=== PATIENT | female | born 1975 | race Caucasian/White ===

== ENCOUNTER 2016-09-24 14:02 | Emergency (ER) | payer OTHER | END 2016-09-24 14:47 | disposition home or self-care (01) | LOC: FER 14:02 | DX: J02.9 Acute pharyngitis, unspecified (principal); K50.90 Crohn's disease, unspecified, without complications; Z88.0 Allergy status to penicillin; Z79.899 Other long term (current) drug therapy | CPT/HCPCS: 87450; 87804; 87899; 99283 ==

== ENCOUNTER 2020-07-22 13:01 | Inpatient (IN) | payer OTHER ==
[~2020-07-22 13:01] MED LIST: COLACE100 MG PO; KEFLEX250 MG PO; PRENATAL FORMU1 EACH PO; ZYRTEC10 M3 PO
[2020-07-22 14:29] LABS: BASOPHIL 0.9 % (0-2); EOSINOPHIL 1.2 % (0-5); HCT 49.1 % (37.0-47.0); LYMPHOCYTE 19.4 % (15-48); MCH 31.1 pg (25.0-31.0); MCHC 34.6 g/dL (32.0-36.0); MCV 89.9 fL (78.0-100.0); MONOCYTE 6.5 % (0-12); NEUTROPHIL 71.6 % (41-80); NRBC 0; PLT 264 K/uL (150-400); RBC 5.46 M/uL (4.20-5.40); RDW 13.3 % (11.5-14.0)
[2020-07-22 14:48] LABS: INR 1.14 (0.9-1.2); PROTHROMBIN TIME 13.9 SECONDS (11.4-13.6)
[2020-07-22 14:49] LABS: D-DIMER 0.41 ug/mLFEU (0.00-0.41)
[2020-07-22 15:06] LABS: ALBUMIN 4.2 g/dL (3.4-5.0); ALKALINE PHOSHATASE 82 U/L (46-116); ALT 24 U/L (14-59); AST 14 U/L (15-37); BILIRUBIN - TOTAL 0.5 mg/dL (0.2-1.0); BUN 11 mg/dL (7-18); BUN/CREAT RATIO (CALC) 13.8 RATIO; CHLORIDE 106 mmol/L (98-107); CO2 (BICARBONATE) 20 mmol/L (21-32); CPK 107 U/L (26-192); GLOBULIN (CALCULATION) 4.2 g/dL; GLUCOSE 123 mg/dL (74-106); LDH 153 U/L (81-234); LIPASE 170 U/L (73-393); POTASSIUM 3.5 mmol/L (3.5-5.1); PRO-BNP 1068 pg/mL (<125); TOTAL PROTEIN 8.4 g/dL (6.4-8.2)
--- NOTE | 2020-07-23 03:07 | NUR ---
PT ADMITTED WITH AFLUTTER, PT ARRIVED TO FLOOR WITH CARDIZEM 125MG/125ML D5 INFUSING AT 15ML/HR ARRIVED TO FLOOR AT 1945 ON 07/22/20, RATE CHANGED AT 2019 PER OUTREACH ANALYST TO 10ML/HER WITH PTS HEART RATE AROUND 60-65, BLOOD PRESSURE DROPPED AT 0300 TO 84/42 WITH HEART RATE AT 58-60 OUTREACH ANALYST NOTIFIED AND RATE CHANGED TO 5ML/HR PER OUTREACH ANALYST ORDER
[2020-07-23 04:22] LABS: EOSINOPHIL 3.1 % (0-5); HCT 46.1 % (37.0-47.0); HGB 15.7 g/dl (12.5-16.0); LYMPHOCYTE 47.6 % (15-48); MCH 30.7 pg (25.0-31.0); MCHC 34.1 g/dL (32.0-36.0); MCV 90.2 fL (78.0-100.0); MONOCYTE 7.7 % (0-12); NEUTROPHIL 40.4 % (41-80); NRBC 0; PLT 267 K/uL (150-400); RBC 5.11 M/uL (4.20-5.40); RDW 13.4 % (11.5-14.0); WBC 9.4 K/uL (4.0-10.5)
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
[2020-07-23 04:42] LABS: ALBUMIN 3.6 g/dL (3.4-5.0); BILIRUBIN - TOTAL 0.5 mg/dL (0.2-1.0); CREATININE 0.75 mg/dL (0.51-0.95); POTASSIUM 3.3 mmol/L (3.5-5.1); TOTAL PROTEIN 7.6 g/dL (6.4-8.2)
--- NOTE | 2020-07-23 13:34 | NUR ---
PT LIVES WITH BOYFRIEND AND HER 2 CHILDREN
[2020-07-23] MEDS ORDERED: TOPAMAX100 MG PO (20:19)
[2020-07-23] MEDS ORDERED: TOPAMAX200 MG PO (20:19)
[2020-07-23] MEDS ORDERED: PRILOSEC20 MG PO (20:20)
[2020-07-23] MEDS ORDERED: ZOFRAN4 M1 PO (20:21)
[2020-07-23] MEDS ORDERED: ZANAFLEX4 MG PO (20:22)
[2020-07-23] MEDS ORDERED: ULTRAM50 MG PO (20:23)
[2020-07-23] MEDS ORDERED: BUDESONIDE EC3 MG PO (20:24)
[2020-07-23] MEDS ORDERED: BUTALB-ASPIRIN1 EACH PO (20:26)
[2020-07-24 04:41] LABS: BASOPHIL 0.9 % (0-2); EOSINOPHIL 2.6 % (0-5); HCT 46.4 % (37.0-47.0); HGB 15.9 g/dl (12.5-16.0); LYMPHOCYTE 34.9 % (15-48); MCH 31.2 pg (25.0-31.0); MCHC 34.3 g/dL (32.0-36.0); MONOCYTE 6.7 % (0-12); NEUTROPHIL 54.7 % (41-80); NRBC 0; PLT 240 K/uL (150-400); RDW 13.3 % (11.5-14.0); WBC 9.1 K/uL (4.0-10.5)
[2020-07-24 04:59] LABS: ALBUMIN 3.4 g/dL (3.4-5.0); BILIRUBIN - TOTAL 0.5 mg/dL (0.2-1.0); CREATININE 0.79 mg/dL (0.51-0.95); GLOBULIN (CALCULATION) 4.4 g/dL; MAGNESIUM 1.9 mg/dL (1.8-2.4); POTASSIUM 3.6 mmol/L (3.5-5.1); TOTAL PROTEIN 7.8 g/dL (6.4-8.2)
[2020-07-25] MEDS ORDERED: ELIQUIS5 MG PO (11:05)
[2020-07-25] MEDS ORDERED: AMIODARONE HCL200 MG PO (11:05)
[2020-07-25] MEDS ORDERED: LOPRESSOR25 MG PO (11:05)
== END 2020-07-25 11:42 | disposition home or self-care (01) | DRG 309 ==
LOC: FER 13:01 → FTCU 17:05
PROVIDERS: Emergency Medicine; Nurse Practitioner; ADMIT Internal Medicine
DX: I48.91 Unspecified atrial fibrillation (principal); K50.90 Crohn's disease, unspecified, without complications; Q87.0 Congenital malformation syndromes predominantly affecting facial appearance; F41.9 Anxiety disorder, unspecified; G43.909 Migraine, unspecified, not intractable, without status migrainosus; G47.30 Sleep apnea, unspecified; Z20.828 Contact with and (suspected) exposure to other viral communicable diseases; E87.6 Hypokalemia; R76.11 Nonspecific reaction to tuberculin skin test without active tuberculosis; Z87.891 Personal history of nicotine dependence; Z88.1 Allergy status to other antibiotic agents; Z88.5 Allergy status to narcotic agent; Z88.0 Allergy status to penicillin; Z91.018 Allergy to other foods
CPT/HCPCS: 36415; 70450; 70551; 71250; 80053; 80061; 82550; 82728; 83615; 83690; 83735; 83880; 84145; 84439; 84443; 84484; 85025; 85379; 85610; 93005; 94762; G0480; J0282; J2060; J7060; U0002

== ENCOUNTER 2021-03-07 13:01 | Emergency (ER) | payer OTHER ==
[~2021-03-07 13:01] MED LIST changes: +AMIODARONE HCL200 MG PO; +BUDESONIDE EC3 MG PO; +BUTALB-ASPIRIN1 EACH PO; +ELIQUIS5 MG PO; +LOPRESSOR25 MG PO; +PRILOSEC20 MG PO; +TOPAMAX100 MG PO; +TOPAMAX200 MG PO; +ULTRAM50 MG PO; +ZANAFLEX4 MG PO; +ZOFRAN4 M1 PO
[2021-03-07] MEDS ORDERED: MEDROL 4MG DOSEP4 MG PO (14:00)
== END 2021-03-07 15:26 | disposition home or self-care (01) ==
LOC: FER 13:01
DX: U07.1 COVID-19 (principal); Z88.0 Allergy status to penicillin
CPT/HCPCS: 99284

== ENCOUNTER 2021-03-12 13:12 | Emergency (ER) | payer OTHER ==
[~2021-03-12 13:12] MED LIST changes: +MEDROL 4MG DOSEP4 MG PO
[2021-03-12] MEDS ORDERED: MEDROL 4MG DOSEP4 MG PO (14:41)
[2021-03-12 15:09] LABS: BASOPHIL 0.8 % (0-2); EOSINOPHIL 2.2 % (0-5); HGB 14.8 g/dl (12.5-16.0); LYMPHOCYTE 32.3 % (15-48); MCH 30.6 pg (25.0-31.0); MCHC 34.4 g/dL (32.0-36.0); MCV 88.8 fL (78.0-100.0); MONOCYTE 8.1 % (0-12); MPV 10.7 fL (6.0-9.5); NEUTROPHIL 56.4 % (41-80); NRBC 0; PLT 175 K/uL (150-400); RBC 4.84 M/uL (4.20-5.40); RDW 13.1 % (11.5-14.0); WBC 4.9 K/uL (4.0-10.5)
[2021-03-12 15:26] LABS: BUN/CREAT RATIO (CALC) 13.7 RATIO; CREATININE 0.73 mg/dL (0.51-0.95); POTASSIUM 3.2 mmol/L (3.5-5.1)
== END 2021-03-12 16:16 | disposition home or self-care (01) ==
LOC: FER 13:12
PROVIDERS: Emergency Medicine
DX: U07.1 COVID-19 (principal); J12.82 Pneumonia due to coronavirus disease 2019; I48.91 Unspecified atrial fibrillation; Z88.0 Allergy status to penicillin; Z79.01 Long term (current) use of anticoagulants; Z79.899 Other long term (current) drug therapy
CPT/HCPCS: 36415; 71045; 80048; 84484; 85025; 93005; J1100; M0243; Q0244